=== PATIENT | male | born 1970 | race Caucasian/White ===

== ENCOUNTER 2024-02-18 07:58 | Observation (INO) ==
[~2024-02-18 07:58] MED LIST: KETAMINE 50 MG/ML ML IV PRN
[2024-02-18] MEDS: MIDAZOLAM 2 MG/2 ML VIAL IV SCH (09:33)
[2024-02-18] MEDS: PROPOFOL 200 MG/20 ML VIAL IV SCH (09:33)
[2024-02-19 06:12] LABS: Hematocrit 51.3 % (40.1-51.0); Hemoglobin 17.5 g/dL (13.7-17.5); Mean Cell Volume 91.6 fL (80.0-100.0); Mean Corpuscular HGB Conc 34.1 g/dL (31.0-36.0); Mean Platelet Volume 9.2 fL (8.8-12.5); Platelet Count 137 K/mcL (140-440); Red Cell Distribution Width 11.6 % (11.5-14.5)
== END 2024-02-19 08:00 | disposition home or self-care (01) ==
LOC: MEDSUR 07:58 → SSSU 07:58
PROVIDERS: ADMIT Surgery Surgical Critical Care; ATTEND Surgery Surgical Critical Care